=== PATIENT | female | born 1990 | race Caucasian/White ===

== ENCOUNTER → 2018-05-23 | Outpatient (CLI) | payer MEDICAID | END | disposition home or self-care (01) | LOC: CFH 13:31 | PROVIDERS: ATTEND Nurse Practitioner | DX: J32.9 Chronic sinusitis, unspecified (principal); J34.2 Deviated nasal septum | CPT/HCPCS: 70486 ==

== ENCOUNTER 2019-01-16 13:00 | Outpatient (CLI) | payer MEDICAID ==
[2019-01-16] MEDS ORDERED: GABA600T7 PO (13:40)
[2019-01-16] MEDS ORDERED: FIORICET PO (13:40)
[2019-01-16] MEDS ORDERED: MULT-516 PO (13:40)
[2019-01-16] MEDS ORDERED: EREN70AU IM (13:40)
[2019-01-16] MEDS ORDERED: ONDA8TAB15 PO (13:40)
[2019-01-16] MEDS ORDERED: DIPH25CA61 PO (13:40)
[2019-01-16] MEDS ORDERED: CYCL-259 PO (13:40)
[2019-01-16] MEDS ORDERED: ACYC-114 PO (13:40)
[2019-01-16] MEDS ORDERED: OMEP-110 PO (13:40)
[2019-01-16] MEDS ORDERED: DULO60CA55 PO (13:40)
[2019-01-16] MEDS ORDERED: PROBIOTIC PO (13:40)
== END 2019-01-16 23:59 | disposition home or self-care (01) ==
LOC: STAR 13:00
PROVIDERS: ATTEND Podiatrist Foot & Ankle Surgery
DX: Z02.9 Encounter for administrative examinations, unspecified (principal)

== ENCOUNTER 2019-01-20 12:14 | Day surgery (SDC) | payer MEDICAID ==
[~2019-01-20] VITALS: Ht 172.7 cm; Wt 75.7 kg
[~2019-01-20 12:14] MED LIST: ACYC-114 PO; CYCL-259 PO; DIPH25CA61 PO; DULO60CA55 PO; EREN70AU IM; FIORICET PO; GABA600T7 PO; MULT-516 PO; OMEP-110 PO; ONDA8TAB15 PO; PROBIOTIC PO
[2019-01-20] MEDS ORDERED: LACTATED RINGERS 1,000 ML IV SCH (12:47)
[2019-01-20 13:11] VITALS: BP 116/83
[2019-01-20] MEDS ORDERED: LIDOCAINE 1%, 20ML ONE (13:41)
[2019-01-20] MEDS ORDERED: LIDOCAINE 1%-EPI 1:100K, 30ML ONE (13:45)
[2019-01-20] MEDS ORDERED: MIDAZOLAM 1 MG/ML, 2ML ONE (13:56)
[2019-01-20] MEDS ORDERED: FENTANYL PF 100 MCG/2ML ONE ×2 (13:56→14:27)
[2019-01-20] MEDS ORDERED: PROPOFOL 50 ML ONE (13:59)
[2019-01-20] MEDS ORDERED: MEPERIDINE/PF 25MG/0.5ML IVPush PRN (14:00)
[2019-01-20] MEDS ORDERED: PROMETHAZINE 12.5 MG SUPP PR PRN (14:00)
[2019-01-20] MEDS ORDERED: PROMETHAZINE 25 MG/ML, 1ML IM PRN ×2 (14:00)
[2019-01-20] MEDS ORDERED: PROMETHAZINE 25 MG SUPP PR PRN (14:00)
[2019-01-20] MEDS ORDERED: MORPHINE SULFATE 4 MG/ML, 1ML IVPush PRN (14:00)
[2019-01-20] MEDS ORDERED: ONDANSETRON 2MG/ML, 2ML IV PRN (14:00)
[2019-01-20] MEDS ORDERED: ONDANSETRON ODT 8 MG PO PRN (14:00)
[2019-01-20] MEDS ORDERED: ACETAMINOPHEN 325 MG TABLET PO PRN (14:00)
[2019-01-20] MEDS ORDERED: hydrALAzine 20 MG/ML, 1ML IV PRN (14:00)
[2019-01-20] MEDS ORDERED: LABETALOL 5MG/ML, 20ML IV PRN (14:00)
[2019-01-20] MEDS ORDERED: PROMETHAZINE 25 MG/ML, 1ML IV PRN (14:00)
[2019-01-20] MEDS ORDERED: OXYcodone 5 MG/5 ML ORAL.SOL UDC PO PRN (14:00)
[2019-01-20] MEDS ORDERED: BUPIVACAINE/PF-EPI 0.5% 1:200K ONE (14:24)
[2019-01-20] MEDS ORDERED: OXYcodone 5 MG/5 ML ORAL.SOL UDC ONE (14:28)
[2019-01-20] MEDS ORDERED: HYDROmorphone 2 MG/ML, 1ML ONE (14:35)
[2019-01-20] MEDS: HYDROmorphone 2 MG/ML, 1ML IVPush PRN ×3 (14:39→14:55)
[2019-01-20] MEDS ORDERED: PROPOFOL 10 MG/ML, 20ML ONE (14:52)
[2019-01-20] MEDS ORDERED: CEFAZOLIN 1,000 MG ONE (14:52)
[2019-01-20] MEDS ORDERED: FENTANYL PF 100 MCG/2ML IV PRN (15:00)
[2019-01-20] MEDS ORDERED: DIPHENHYDRAMINE 50 MG/ML, 1ML ONE (15:43)
[2019-01-20] MEDS ORDERED: DIPHENHYDRAMINE 50 MG/ML, 1ML IV PRN (16:00)
== END 2019-01-20 17:00 | disposition home or self-care (01) ==
LOC: OUT 12:14
PROVIDERS: ATTEND Podiatrist Foot & Ankle Surgery
DX: M72.2 Plantar fascial fibromatosis (principal); M77.32 Calcaneal spur, left foot; M24.875 Other specific joint derangements left foot, not elsewhere classified; K21.9 Gastro-esophageal reflux disease without esophagitis; F32.9 Major depressive disorder, single episode, unspecified; Z72.89 Other problems related to lifestyle
CPT/HCPCS: 28119; 28615; 73620; 76000; 81025; C1713; C1769; J0690; J1170; J1200; J2250; J2704; J3010; J3490; J7120

== ENCOUNTER 2020-09-08 00:21 | Observation (INO) | payer MEDICARE, MEDICAID ==
[~2020-09-08] VITALS: Ht 172.7 cm; Wt 103.5 kg
[~2020-09-08 00:21] MED LIST changes: -DULO60CA55 PO; +DULO60CA56 PO; -ONDA8TAB15 PO; +ONDA8TAB18 PO
--- NOTE | 2020-09-08 00:27 | NUR ---
LEFT LOWER LEG FX/DEFORMITY. POSITIVE PEDAL PULSES, NO NECK, NO BACK PAIN, NO LOC. PT HAS ETOH ON BOARD. MEDS IN ROUTE, ZOFRAN, FENTENYL AND 3 VERSED. VSS. WILL CONTINUE TO MONITOR.
--- NOTE | 2020-09-08 00:36 | NUR ---
PXR DONE. VSS, PT TEARFUL, SPOUSE AT BEDSIDE. ON CONT PULSE OX, WILL CONTINUE TO MONITOR.
[2020-09-08] MEDS ORDERED: ONDANSETRON 2MG/ML, 2ML ONE ×2 (00:58→16:32)
[2020-09-08] MEDS ORDERED: HYDROmorphone 1 MG/ML, 1ML INJ ONE ×3 (00:58→17:43)
[2020-09-08] MEDS ORDERED: ONDANSETRON 2MG/ML, 2ML IVPush ONE (01:00)
[2020-09-08] MEDS ORDERED: HYDROmorphone 2 MG/ML, 1ML IVPush PRN (01:00)
--- NOTE | 2020-09-08 01:01 | NUR ---
0115: see moderate sedatoin flow sheet/ procedural sheet for charting. time out: 0129 start: 0130 end: 0140 splinted, pos pulses distally, post op xray done. 0200: pt baseline, awake alert no n/v. pt tolerated sedation without complications. bloods for pre-op done.
[2020-09-08 01:02] LABS: MD NO
--- NOTE | 2020-09-08 01:13 | NUR ---
PT REMAINS STABLE, PARTNER AT BEDSIDE. WAITING FOR BED ON ORTHO. VSS, WILL CONTINUE TO MONITOR.
[2020-09-08] MEDS ORDERED: HYDROmorphone 2 MG/ML, 1ML ONE (01:16)
--- NOTE | 2020-09-08 01:18 | NUR ---
ROOM SET UP FOR CLOSED REDUCTION OF LEFT LOWER EXT. 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
[2020-09-08] MEDS ORDERED: ETOMIDATE 40 MG/20 ML IVPush ONE (01:30)
[2020-09-08] MEDS ORDERED: SODIUM CHLORIDE FLUSH 10ML SYR IVF PRN (01:30)
[2020-09-08] MEDS ORDERED: HYDROmorphone 1 MG/ML, 1ML INJ IVPush PRN ×2 (01:30→03:00)
[2020-09-08] MEDS ORDERED: ONDANSETRON 2MG/ML, 2ML IVPush PRN ×3 (01:30→18:00)
[2020-09-08] MEDS: HYDROmorphone 1 MG/ML, 1ML INJ IVPush PRN ×6 (01:45→17:54)
--- NOTE | 2020-09-08 01:50 | NUR ---
PT ASSISTED TO BEDPAN, VITALS STABLE. APPEARS MORE COMFORTABLE.
[2020-09-08 01:51] LABS: ANION GAP 8 mmol/L (5-15); CALCIUM 8.9 mg/dL (8.5-10.1); CHLORIDE 106 mmol/L (98-107); CREATININE 0.96 mg/dL (0.55-1.02)
--- NOTE | 2020-09-08 01:57 | NUR ---
PT AWAITING TX TO ORTHO. RR EQUAL AND UNLABORED. PT REPORTS PAIN DECREASED A LITTLE BIT. POS PULSES DISTALLY. ALL BELONGINGS ON GURNEY.
[2020-09-08 01:58] LABS: BASOPHILS % (AUTO) 0 % (0-1); EOSINOPHILS % (AUTO) 2 % (1-7); LYMPHOCYTES % (AUTO) 29 % (22-44); MEAN CORPUSCULAR HEMOGLOBIN 29.6 pg (27.0-34.8); MEAN CORPUSCULAR HGB CONC 33.1 g/dL (32.4-35.8); MEAN PLATELET VOLUME 9.8 fL (7.4-10.4); MONOCYTES % (AUTO) 6 % (2-9); NEUTROPHILS % (AUTO) 62 % (42-75); PLATELET COUNT 260 x10^3/uL (130-400); RED CELL DISTRIBUTION WIDTH 13.2 % (9.6-15.2)
--- NOTE | 2020-09-08 02:11 | NUR ---
PARTNER BACK WITH PHONE FOR PT, BELONGINGS TO BE GIVEN TO . PT SLEEPING INTERMITTENTLY, RR 12, ON O2.
--- NOTE | 2020-09-08 02:34 | NUR ---
AWAITING TRANSPORT, PT REMAINS STABLE VS.
--- NOTE | 2020-09-08 02:53 | NUR ---
[facility]RE [phone]
[2020-09-08 03:05] VITALS: BP 100/61
[2020-09-08 07:00] VITALS: BP 106/64
[2020-09-08] MEDS: HYDROmorphone 1 MG/ML, 1ML INJ IV PRN (07:53)
[2020-09-08] MEDS: CYCLOBENZAPRINE 10 MG TABLET PO SCH ×2 (07:54→20:39)
[2020-09-08] MEDS: OMEPRAZOLE 20 MG CAPSULE.DR PO SCH (07:54)
[2020-09-08] MEDS: GABAPENTIN 300 MG CAPSULE PO SCH ×3 (07:54→20:39)
[2020-09-08] MEDS: DULOXETINE 30 MG CAPSULE.DR PO SCH (07:56)
[2020-09-08] MEDS ORDERED: TEMPLATE NON-FORMULARY MED. (Gabapentin** 600 MG) PO SCH (08:00)
[2020-09-08] MEDS ORDERED: [UNRECOGNIZED DRUG - REMARK] MC SCH (08:00)
[2020-09-08] MEDS: OXYcodone IR 5MG TABLET PO PRN ×3 (09:27→21:53)
[2020-09-08 12:00] VITALS: BP 117/64
[2020-09-08] MEDS ORDERED: MIDAZOLAM 1 MG/ML, 2ML ONE (15:20)
[2020-09-08] MEDS ORDERED: FENTANYL PF 250 MCG/5ML ONE (15:20)
[2020-09-08] MEDS ORDERED: SUGAMMADEX 200 MG/2 ML IVPush ONE (15:30)
[2020-09-08] MEDS ORDERED: LIDOCAINE PF 2%, 5ML ONE (16:15)
[2020-09-08] MEDS ORDERED: KETOROLAC 30 MG/1 ML ONE (16:24)
[2020-09-08] MEDS ORDERED: CEFAZOLIN 1,000 MG ONE (16:32)
[2020-09-08] MEDS ORDERED: DEXAMETHASONE 4 MG/ML, 1ML ONE (16:32)
[2020-09-08] MEDS ORDERED: PROPOFOL 10 MG/ML, 20ML ONE (16:32)
[2020-09-08] MEDS ORDERED: SUCCINYLCHOLINE 20 MG/ML, 10ML ONE (16:32)
[2020-09-08] MEDS ORDERED: OXYcodone 5 MG/5 ML ORAL.SOL UDC ONE (17:33)
[2020-09-08] MEDS ORDERED: MEPERIDINE/PF 25MG/ML,1ML ONE (17:33)
[2020-09-08] MEDS ORDERED: FENTANYL PF 100 MCG/2ML ONE ×2 (17:33→18:00)
[2020-09-08] MEDS: FENTANYL PF 100 MCG/2ML IV PRN ×4 (17:40→18:10)
[2020-09-08] MEDS ORDERED: CEFAZOLIN 2,000 MG in SODIUM CHLORIDE 0.9% 50 ML IV SCH (18:00)
[2020-09-08] MEDS ORDERED: PROMETHAZINE 25 MG/ML, 1ML IVPush PRN (18:00)
[2020-09-08] MEDS ORDERED: ACETAMINOPHEN 325 MG TABLET PO PRN (18:00)
[2020-09-08] MEDS ORDERED: MEPERIDINE/PF 25MG/0.5ML IVPush PRN (18:00)
[2020-09-08] MEDS ORDERED: OXYcodone 5 MG/5 ML ORAL.SOL UDC PO PRN (18:00)
[2020-09-08 19:06] VITALS: BP 116/78
[2020-09-08] MEDS: CEFAZOLIN PMX 2GM/50ML 50 ML IVPB SCH (23:26)
[2020-09-09 00:19] VITALS: BP 116/66
[2020-09-09] MEDS: OXYcodone IR 5MG TABLET PO PRN ×3 (01:53→09:57)
[2020-09-09 04:13] VITALS: BP 112/59
[2020-09-09] MEDS: CYCLOBENZAPRINE 10 MG TABLET PO SCH (06:14)
[2020-09-09] MEDS: GABAPENTIN 300 MG CAPSULE PO SCH (06:14)
[2020-09-09 06:45] VITALS: BP 94/68
[2020-09-09] MEDS: CEFAZOLIN PMX 2GM/50ML 50 ML IVPB SCH (07:10)
[2020-09-09] MEDS: DULOXETINE 30 MG CAPSULE.DR PO SCH (07:50)
[2020-09-09] MEDS: OMEPRAZOLE 20 MG CAPSULE.DR PO SCH (07:50)
[2020-09-09] MEDS ORDERED: ENOXAPARIN 40 MG/0.4 ML SQ SCH (08:00)
[2020-09-09] MEDS: HYDROmorphone 1 MG/ML, 1ML INJ IV PRN (09:00)
[2020-09-09 09:08] VITALS: BP 124/79
[2020-09-09] MEDS ORDERED: OXYC5CAP2 PO (10:14)
[2020-09-09] MEDS ORDERED: DOCU-131 PO (10:15)
[2020-09-09] MEDS ORDERED: ASPI81TA45 PO (10:15)
== END 2020-09-09 10:23 | disposition home or self-care (01) ==
LOC: ED 01:35 → EDIP 01:45 → INTOOBSV 01:45 → 4NE 02:59 → DCLOUNGE 09-09 10:12
PROVIDERS: ADMIT Orthopaedic Surgery; ATTEND Orthopaedic Surgery
DX: S82.302A Unspecified fracture of lower end of left tibia, initial encounter for closed fracture (principal); Z20.828 Contact with and (suspected) exposure to other viral communicable diseases; S82.832A Other fracture of upper and lower end of left fibula, initial encounter for closed fracture; F12.10 Cannabis abuse, uncomplicated; W01.0XXA Fall on same level from slipping, tripping and stumbling without subsequent striking against object, initial encounter; Y93.89 Activity, other specified; Y92.89 Other specified places as the place of occurrence of the external cause; Z79.899 Other long term (current) drug therapy
CPT/HCPCS: 27759; 27781; 36415; 73590; 76000; 80048; 82040; 84703; 85025; 87635; 96365; 96366; 96375; 96376; 97161; 99284; C1713; G0378; J0330; J0690; J1100; J1170; J1885; J2175; J2250; J2405; J2704; J3010

== ENCOUNTER → 2020-09-18 | Outpatient (CLI) | payer MEDICARE, MEDICAID ==
[~2020-09-18] MED LIST changes: +ASPI81TA45 PO; +DOCU-131 PO; +GADOTERATE 10 MMOL/20 ML SYR ONE; +OXYC5CAP2 PO
== END | disposition home or self-care (01) ==
LOC: RAD 13:48
PROVIDERS: ATTEND Registered Nurse
DX: M51.14 Intervertebral disc disorders with radiculopathy, thoracic region (principal); M50.10 Cervical disc disorder with radiculopathy, unspecified cervical region
CPT/HCPCS: 72156; 72157; A9575